=== PATIENT | female | born 1995 | race Caucasian/White ===

== ENCOUNTER 2023-10-20 18:22 | Inpatient (IN) | payer MEDICAID ==
[~2023-10-20] VITALS: Ht 160 cm; Wt 60.4 kg
[2023-10-20] MEDS ORDERED: ACETAMINOPHEN 325MG TABLET PO ONE (20:00)
[2023-10-20 21:13] LABS: BASOPHILS % 0.1 % (0.0-2.0); HEMATOCRIT. 33.2 % (36.0-48.0); HEMOGLOBIN. 10.4 g/dL (12.0-16.0); LYMPHOCYTES % 22.2 % (20.0-50.0); MEAN CORPUSCULAR HEMOGLOBIN 18.8 pg (28.0-32.0); MEAN CORPUSCULAR HGB CONC 31.3 g/dL (31.0-37.0); MEAN PLATELET VOLUME 8.5 fl (7.4-10.4); MONOCYTES % 6.7 % (2.0-8.0); PLATELET 383 x1000/uL (130-400); RED BLOOD CELL COUNT 5.53 mill/uL (4.2-5.4); RED CELL DISTRIBUTION WIDTH 19.3 % (11.6-14.6); WHITE BLOOD COUNT 7.3 x1000/uL (4.5-11.0)
[2023-10-20 21:15] LABS: ADD RBC MORPHOLOGY YES; DIFFERENTIAL COMMENT 1
[2023-10-20 21:19] LABS: CHLORIDE 108 mEq/L (98-107); POTASSIUM 4.2 mEq/L (3.5-5.1); SODIUM 140 mEq/L (136-145)
[2023-10-20 21:20] LABS: CALCIUM 9.7 mg/dL (8.7-10.4); CARBON DIOXIDE 24 mEq/L (21-32)
[2023-10-20 21:25] LABS: CREATININE 0.5 mg/dL (0.6-1.0); GLUCOSE 96 mg/dL (70-105); UREA NITROGEN BLOOD 13 mg/dL (9-23)
[2023-10-20 21:26] LABS: TROPONIN I HIGH SENSITIVITY < 4 ng/L (3.0-34)
[2023-10-20 21:27] LABS: ALANINE AMINOTRANSFERASE 53 IU/L (10-49); ALBUMIN 4.9 g/dL (3.2-4.8); ASPARTATE AMINOTRANSFERASE 41 IU/L (<34); BILIRUBIN TOTAL 0.4 mg/dL (0.1-1.0); PROTEIN TOTAL 7.6 g/dL (6.0-8.3)
[2023-10-20 21:29] LABS: T4 FREE 2.46 ng/dL (0.89-1.76)
[2023-10-20 21:30] LABS: THYROID STIMULATING HORMONE < 0.10 uIU/mL (0.55-4.78)
[2023-10-20 21:36] LABS: ANISOCYTOSIS 1+; HYPOCHROMASIA 3+; MICROCYTOSIS 3+; PLATELET ESTIMATE NORMAL
[2023-10-20] MEDS: ACETAMINOPHEN 325MG TABLET PO NR (22:50)
[2023-10-20] MEDS: SODIUM CHLORIDE 0.9% 1,000 ML IV ONE (23:12)
[2023-10-21] MEDS: IOHEXOL-350 100 ML BOTTLE ONE (02:22)
[2023-10-21] MEDS ORDERED: ONDANSETRON HCL 4MG/2ML INJ IV PRN (07:00)
[2023-10-21] MEDS ORDERED: HYDROCODONE/ACETAMINOPHEN 5/325MG TABLET PO PRN (07:00)
[2023-10-21] MEDS ORDERED: ACETAMINOPHEN 650MG/20.3ML UDC GT PRN (07:00)
[2023-10-21] MEDS ORDERED: CLONIDINE 0.1MG TABLET PO PRN (07:00)
[2023-10-21] MEDS ORDERED: MAGNESIUM/ALUMINUM HYDROXIDE/SIMETHICONE 30ML UDC PO PRN (07:00)
[2023-10-21] MEDS ORDERED: NALOXONE HCL 0.4MG/ML VIAL IV PRN (09:00)
[2023-10-21] MEDS: OMEPRAZOLE 20MG CAPSULE EXTENDED RELEASE PO SCH (09:12)
[2023-10-21] MEDS: ENOXAPARIN 40MG/0.4ML SYR SUBCUT SCH (09:13)
[2023-10-21 16:13] LABS: IRON 18 ug/dL (50-170)
[2023-10-21 16:16] LABS: TOTAL IRON BINDING CAPACITY 365 ug/dl (250-425)
[2023-10-21 16:20] LABS: FOLIC ACID (FOLATE) SERUM > 20.00 ng/mL (>5.38); TROPONIN I HIGH SENSITIVITY < 4 ng/L (3.0-34)
[2023-10-21 16:21] LABS: FERRITIN 3 ng/mL (10-291); VITAMIN B12 SERUM 154 pg/mL (211-911)
[2023-10-21 16:38] LABS: HCG SCREEN NEGATIVE
[2023-10-21] MEDS ORDERED: METHIMAZOLE 5MG TABLET PO SCH (17:45)
[2023-10-21 18:54] VITALS: BP 137/89; PULSE 124; RESP 26; TEMP 98.6
[2023-10-21 18:56] VITALS: BP 137/89; PULSE 118; RESP 24; TEMP 98.6
[2023-10-21 20:00] VITALS: BP 126/74; PULSE 85; RESP 20; TEMP 98.3
[2023-10-21] MEDS: METHIMAZOLE 5MG TABLET PO SCH (20:20)
[2023-10-21 21:35] LABS: HEPATITIS B SURFACE ANTIGEN NEGATIVE (Negative)
[2023-10-21] MEDS: IRON SUCROSE COMPLEX 100 MG/5 ML ML IV SCH (21:52)
[2023-10-21 21:56] LABS: HEPATITIS C AB NON REACTIVE (Neg) (Negative)
[2023-10-22] VITALS: BP 124/68; PULSE 89; RESP 22; TEMP 98.1
[2023-10-22 01:01] LABS: CLARITY URINE CLEAR (CLEAR); COLOR URINE YELLOW (YELLOW); GLUCOSE URINE NEGATIVE (NEGATIVE); KETONES URINE NEGATIVE (NEGATIVE); LEUKOCYTE ESTERASE URINE NEGATIVE (NEGATIVE); NITRITE URINE NEGATIVE (NEGATIVE); OCCULT BLOOD URINE 1+ (NEGATIVE); PROTEIN URINE 2+ (NEGATIVE); SPECIFIC GRAVITY URINE 1.025 (1.005-1.030)
[2023-10-22 01:14] LABS: BACTERIA URINE 1+; SQUAMOUS EPITHELIAL CELL URINE FEW /lpf (RARE/1+); WBC URINE 0-2 /hpf (0-2)
[2023-10-22 01:15] LABS: MUCUS URINE 1+ /lpf (< = 2+)
[2023-10-22 01:17] LABS: *AMPHETAMINES SCREEN URINE NEGATIVE (NEGATIVE); *BARBITURATES SCREEN URINE NEGATIVE (NEGATIVE); *BENZODIAZEPINES SCREEN URINE NEGATIVE (NEGATIVE); *COCAINE SCREEN URINE NEGATIVE (NEGATIVE); CANNABINOID URINE SCREEN PRESUMPTIVE POSITIVE (NEGATIVE); ECSTASY MDMA SCREEN URINE NEGATIVE (NEGATIVE); METHADONE URINE SCREEN NEGATIVE (NEGATIVE); OPIATES URINE SCREEN NEGATIVE (NEGATIVE); PHENCYCLIDINE URINE SCREEN NEGATIVE (NEGATIVE)
[2023-10-22 04:00] VITALS: BP 120/75; PULSE 85; RESP 18; TEMP 97.6
[2023-10-22 07:11] LABS: BASOPHILS % 0.2 % (0.0-2.0); HEMOGLOBIN. 10.1 g/dL (12.0-16.0); LYMPHOCYTES % 31.8 % (20.0-50.0); MEAN CORPUSCULAR HEMOGLOBIN 18.5 pg (28.0-32.0); MEAN CORPUSCULAR HGB CONC 30.4 g/dL (31.0-37.0); MEAN CORPUSCULAR VOLUME 60.6 fL (81.0-99.0); MEAN PLATELET VOLUME 8.8 fl (7.4-10.4); MONOCYTES % 6.9 % (2.0-8.0); NEUTROPHILS % 61.1 % (40.0-76.0); PLATELET 329 x1000/uL (130-400); RED BLOOD CELL COUNT 5.45 mill/uL (4.2-5.4); RED CELL DISTRIBUTION WIDTH 19.5 % (11.6-14.6); WHITE BLOOD COUNT 6.1 x1000/uL (4.5-11.0)
[2023-10-22 07:19] LABS: CHLORIDE 106 mEq/L (98-107); POTASSIUM 3.8 mEq/L (3.5-5.1); SODIUM 139 mEq/L (136-145)
[2023-10-22 07:23] LABS: TRIGLYCERIDE 74 mg/dL (0-150); TROPONIN I HIGH SENSITIVITY < 4 ng/L (3.0-34)
[2023-10-22 07:25] LABS: ALANINE AMINOTRANSFERASE 58 IU/L (10-49); PROTEIN TOTAL 6.9 g/dL (6.0-8.3); UREA NITROGEN BLOOD 8 mg/dL (9-23)
[2023-10-22 07:26] LABS: CALCIUM 9.7 mg/dL (8.7-10.4); CARBON DIOXIDE 22 mEq/L (21-32); LDL CHOLESTEROL 53 mg/dL (5-100)
[2023-10-22 07:27] LABS: BILIRUBIN TOTAL 0.4 mg/dL (0.1-1.0)
[2023-10-22 07:31] LABS: ASPARTATE AMINOTRANSFERASE 41 IU/L (<34); CREATININE 0.4 mg/dL (0.6-1.0); GLUCOSE 85 mg/dL (70-105)
[2023-10-22 07:32] LABS: ALBUMIN 4.1 g/dL (3.2-4.8)
[2023-10-22 07:33] LABS: BILIRUBIN DIRECT 0.1 mg/dL (<=3.0); CHOLESTEROL 115 mg/dL (<200); HDL CHOLESTEROL 52 mg/dL (>65); PHOSPHORUS 4.8 mg/dL (2.5-4.9)
[2023-10-22 08:00] VITALS: BP 124/84; PULSE 91; RESP 22; TEMP 98.6
[2023-10-22 08:24] LABS: DIFFERENTIAL COMMENT 1
[2023-10-22 08:27] LABS: ADD RBC MORPHOLOGY YES
[2023-10-22] MEDS: CYANOCOBALAMIN 1000MCG/ML VIAL IM SCH (09:00)
[2023-10-22 09:18] LABS: ANISOCYTOSIS 2+
[2023-10-22 09:20] LABS: HYPOCHROMASIA 1+
[2023-10-22 09:21] LABS: MICROCYTOSIS 2+; PLATELET ESTIMATE NORMAL
[2023-10-22 12:00] VITALS: BP 124/89; PULSE 122; RESP 22; TEMP 98.2
[2023-10-22 16:00] VITALS: BP 124/88; PULSE 108; RESP 21; TEMP 98.4
[2023-10-22 20:00] VITALS: BP 119/81; PULSE 104; RESP 21; TEMP 97.8
[2023-10-23] VITALS: BP 111/80; PULSE 117; RESP 25; TEMP 97.3
[2023-10-23 04:00] VITALS: BP 125/90; PULSE 100; RESP 19; TEMP 97.7
[2023-10-23 05:54] LABS: BASOPHILS % 0.1 % (0.0-2.0); HEMATOCRIT. 32.5 % (36.0-48.0); HEMOGLOBIN. 10.4 g/dL (12.0-16.0); LYMPHOCYTES % 31.6 % (20.0-50.0); MEAN CORPUSCULAR HGB CONC 31.9 g/dL (31.0-37.0); MEAN CORPUSCULAR VOLUME 59.5 fL (81.0-99.0); MEAN PLATELET VOLUME 8.7 fl (7.4-10.4); NEUTROPHILS % 58.3 % (40.0-76.0); PLATELET 336 x1000/uL (130-400); RED BLOOD CELL COUNT 5.46 mill/uL (4.2-5.4); RED CELL DISTRIBUTION WIDTH 19.1 % (11.6-14.6); WHITE BLOOD COUNT 6.3 x1000/uL (4.5-11.0)
[2023-10-23 05:59] LABS: CHLORIDE 109 mEq/L (98-107); POTASSIUM 3.6 mEq/L (3.5-5.1); SODIUM 140 mEq/L (136-145)
[2023-10-23 06:00] LABS: CALCIUM 9.3 mg/dL (8.7-10.4); CARBON DIOXIDE 22 mEq/L (21-32)
[2023-10-23 06:04] LABS: UREA NITROGEN BLOOD 13 mg/dL (9-23)
[2023-10-23 06:05] LABS: CREATININE 0.4 mg/dL (0.6-1.0); GLUCOSE 97 mg/dL (70-105)
[2023-10-23 06:06] LABS: ALANINE AMINOTRANSFERASE 51 IU/L (10-49); ALBUMIN 4.2 g/dL (3.2-4.8); ASPARTATE AMINOTRANSFERASE 29 IU/L (<34)
[2023-10-23 06:07] LABS: BILIRUBIN TOTAL 0.3 mg/dL (0.1-1.0); PHOSPHORUS 4.9 mg/dL (2.5-4.9); PROTEIN TOTAL 6.7 g/dL (6.0-8.3)
[2023-10-23 06:08] LABS: BILIRUBIN DIRECT < 0.1 mg/dL (<=3.0)
[2023-10-23 07:32] LABS: DIFFERENTIAL COMMENT 1
[2023-10-23 08:00] VITALS: BP 116/69; PULSE 92; RESP 19; TEMP 98.7
[2023-10-23] MEDS: PROPRANOLOL HCL 10MG TABLET PO SCH (09:00)
[2023-10-23] MEDS: MAGNESIUM GLUCONATE 500MG TABLET PO NR (09:22)
[2023-10-23] MEDS ORDERED: METH-371 PO (11:20)
[2023-10-23] MEDS ORDERED: OMEP20CA14 PO (11:20)
[2023-10-23] MEDS ORDERED: PROP10TA10 PO (11:20)
[2023-10-23 12:00] VITALS: BP 117/83; PULSE 93; RESP 25; TEMP 98.6
[2023-10-23 13:31] VITALS: BP 117/83; PULSE 104; TEMP 98.4; O2SAT 94
[2023-10-26 08:13] LABS: ANTI-PARIETAL CELL AB 76.5 Units (0.0-20.0)
== END 2023-10-23 14:40 | disposition home or self-care (01) | DRG 816 ==
LOC: EDBD 18:22 → ER 18:22 → 5WST 10-21 02:59 → 3WST 10-21 16:13
PROVIDERS: ADMIT Family Medicine Adult Medicine; ATTEND Family Medicine Adult Medicine
DX: T40.5X1A Poisoning by cocaine, accidental (unintentional), initial encounter (principal); D50.9 Iron deficiency anemia, unspecified; E05.90 Thyrotoxicosis, unspecified without thyrotoxic crisis or storm; F10.10 Alcohol abuse, uncomplicated; E03.9 Hypothyroidism, unspecified; E53.8 Deficiency of other specified B group vitamins; F14.10 Cocaine abuse, uncomplicated; F17.210 Nicotine dependence, cigarettes, uncomplicated; Z91.199 Patient's noncompliance with other medical treatment and regimen due to unspecified reason
CPT/HCPCS: 36415; 71045; 71270; 80048; 80053; 80061; 80076; 80305; 81003; 82607; 82728; 82746; 83520; 83540; 83550; 83735; 84100; 84439; 84443; 84481; 84484; 84703; 85025; 85379; 86340; 86705; 87340; 93005; 93306; 93970; 99285; J1650; J3420; J7030; Q9967